=== PATIENT | female | born 1975 | race Caucasian/White ===

== ENCOUNTER 2017-12-27 12:57 | Emergency (ER) | payer OTHER ==
[~2017-12-27] VITALS: Ht 157.5 cm; Wt 64.5 kg
[2017-12-27 13:35] LABS: HEMATOCRIT 39.8 % (36.0-46.0); HEMOGLOBIN 14.2 G/DL (11.9-15.5); MCH 31.1 PG (29.0-34.0); MCHC 35.7 G/DL (30.0-36.0); MCV 87.3 FL (83-99); PLATELET COUNT 270 K/uL (156-360); RBC DIS.WIDTH-CV 11.9 % (11.8-14.6); RBC DIS.WIDTH-SD 38.2 % (39-53); RED BLOOD COUNT 4.56 M/uL (3.80-5.20); WHITE BLOOD COUNT 5.7 K/uL (4.1-10.2)
[2017-12-27 13:43] LABS: ALBUMIN 4.5 g/dL (3.2-4.8); CHLORIDE 106 mEq/L (99-109); POTASSIUM 4.1 mEq/L (3.7-5.4); SODIUM 138 mEq/L (136-147)
[2017-12-27 13:46] LABS: GLUCOSE 97 mg/dL (70-99)
[2017-12-27 13:48] LABS: TOTAL BILIRUBIN 1.4 mg/dL (0.0-1.0)
[2017-12-27 13:49] LABS: ALKALINE PHOSPHATASE 36 IU/L (3-129)
[2017-12-27 13:50] LABS: CREATININE 0.7 mg/dL (0.6-1.3)
[2017-12-27 13:51] LABS: AST (GOT) 19 IU/L (2-34); UREA NITROGEN (BUN) 10 mg/dL (9-23)
[2017-12-27 13:52] LABS: ALT (GPT) 20 IU/L (3-49)
[2017-12-27 13:58] LABS: QUANTITATIVE HCG < 4.0 MIU/ML
[2017-12-27 14:01] LABS: GFR ESTIMATE (CALCULATED) > 59 mL/min/
[2017-12-27 15:08] LABS: APPEARANCE CLEAR ((CLEAR)); BILIRUBIN NEGATIVE; BLOOD NEGATIVE; COLOR STRAW ((YELLOW)); GLUCOSE (STRIP) NEGATIVE; KETONES NEGATIVE; LEUKOCYTES TRACE; NITRITE NEGATIVE; PROTEIN (STRIP) NEGATIVE; SPECIFIC GRAVITY 1.009 (1.000-1.030); UROBILINOGEN 0.2 MG/DL (0.2-1.0)
[2017-12-27 15:19] LABS: BACTERIA RARE /HPF; EPITHELIAL CELLS 1+ /HPF; MUCUS NONE SEEN /LPF; RED BLOOD CELLS 0-5 /HPF (0-5); UCUL ADDED? YES
[2017-12-27] MEDS ORDERED: BENTYL20 MG PO (17:57)
[2017-12-27 18:39] VITALS: BP 132/84
== END 2017-12-27 18:40 | disposition home or self-care (01) ==
LOC: EME 12:57
DX: R10.13 Epigastric pain (principal); Z85.3 Personal history of malignant neoplasm of breast; Z92.3 Personal history of irradiation
CPT/HCPCS: 76856; 80053; 81003; 84702; 85027; 87086; 99281; 99284